=== PATIENT | female | born 1970 | race Caucasian/White ===

== ENCOUNTER 2021-01-13 07:18 | Outpatient (CLI) | payer OTHER, SELFPAY ==
[2021-01-13 08:11] VITALS: BP 143/90; PULSE 76; RESP 18; TEMP 36.9; O2SAT 97; BMI 36.2
[2021-01-13 08:45] VITALS: BP 127/88; PULSE 74; RESP 16; O2SAT 97
[2021-01-13 09:45] VITALS: BP 132/89; PULSE 74; RESP 16; TEMP 36.8; O2SAT 97
== END 2021-01-13 07:19 | disposition home or self-care (01) ==
LOC: OPS 07:22
PROVIDERS: PCP Family Medicine; Visit Provider Nurse Practitioner
DX: U07.1 COVID-19 (principal)
CPT/HCPCS: 96365